=== PATIENT | female | born 1950 | race Caucasian/White ===

== ENCOUNTER 2023-07-14 07:08 | Emergency (ER) | payer MEDICARE, OTHER, SELFPAY ==
[2023-07-14 07:12] VITALS: BP 152/87
--- NOTE | 2023-07-14 08:10 | ED.GENMED ---
History of Present Illness
General
Chief Complaint: Abdominal Pain
Source: patient
Exam Limitations: none
Time Seen by Provider: 07/14/23 07:41
Nursing documentation reviewed up to this point in time: agreed with
Travel History
Have you had any contact with someone who has COVID-19?: No
Do you have any symptoms of coronavirus? Fever > 100 degrees, chills, cough, shortness of breath, sore throat, loss of taste or smell, muscle aches, or headache?: No
History of Present Illness
History of Present Illness:
72 Y/O F with h/o htn, hld, borderline dm
here with lower abd pain x 3 days
started after she ate at a restaurant, came home 3 days ago and had diarrhea, explosive, nonbloody. she then felt ok
but then has had pain in her lower abdomen, some pressure to urinate and just doesn't feelw ell. the pain is more crampy and comes and goes. nonradiating
no fever, chills, nausea, vomiting, diarrhea
still able to eat
had a colonoscopy 6 mo ago showin diverticulosis
never had itis
no dysuria, hematuria, urgency.
Past History
Past History
ED Past Medical History: HTN and Hypercholesterolemia
ED Past Surgical History: Orthopedic (spine)
Social History
Tobacco: Non-smoker
Alcohol: None
Drug: None
Personal: Single
Living: alone
Review of Systems
Review of Systems
Allergies reviewed?: Yes
All Other Systems: Not applicable
Phy Exam
Physical Exam
Physical Exam:
GENERAL: Alert , in no apparent distress
EYE: pupils equal and reactive
NECK: Supple
ENT: o/p clr, mmm.
CARDIAC: Regular rate and rhythm .
LUNGS: Clear breath sounds bilaterally, no acute respiratory distress, no wheezes/rales/rhonchi
ABDOMEN: Soft,verymild lower abd tenderness, no r/g, no cvat, normal bowel sounds
NEUROLOGICAL: Alert and oriented, no focal neuro deficits
SKIN: Warm and dry, skin intact.
MUSCULOSKELETAL: No edema, well perfused. neg elsa's sign
PSYCH: Normal and appropriate interaction.
Course
Orders/Labs/Results
Orders:
Orders
07/14/23 08:10
0.9% Sodium Chloride 1000 ml [Nss] 1,000 ml IV BOLUS
Iohexol [Omnipaque] See Protocol PO NOW STA
07/14/23 08:19
Complete Blood Count/With Diff Urgent
Comprehensive Metabolic Panel Urgent
Lactic Acid Urgent
07/14/23 08:40
CT Abd/Pel (IV only)-DH only Urgent
Comment:
Reason For Exam: lower abd pain, eval for divertic
07/14/23 09:57
Urinalysis Reflex To Culture Urgent
Date Specimen was Collected: 07/14/23
Time Specimen was Collected: 09:48
Urine Microscopic Reflex Cult Urgent
Urine Culture Urgent
CLARITA Source: U
Specimen Description:
Date Specimen was Collected: 07/14/23
Time Specimen was Collected: 09:48
07/14/23 10:57
LevoFLOXacin [Levaquin] 500 mg PO NOW STA
MetroNIDAZOLE [Flagyl] 500 mg PO NOW STA
Potassium Chloride Powder [Klor-Con] 20 meq PO NOW STA
Abnormal Lab Results
07/14/23 07/14/23
08:19 09:57
WBC 11.0 H 10^3/uL
(4.8-10.8)
MCH 31.2 H pg
(27.0-31.0)
Absolute Neuts (auto) 8.9 H 10^3/uL
(1.4-6.5)
Absolute Lymphs (auto) 1.1 L 10^3/uL
(1.2-3.4)
Absolute Monos (auto) 0.7 H 10^3/uL
(0.1-0.6)
Neutrophils % 81.0 H %
(42.2-75.2)
Lymphocytes % 10.2 L %
(20.5-51.1)
Potassium 3.3 L mmol/L
(3.5-5.1)
Glucose 127 H mg/dl
(70-99)
Leukocyte Esterase Rfl 1+ A
(Negative)
Urine Bacteria (Reflex) Few A
(Negative)
07/14/23 08:19
07/14/23 08:19
Vital Signs
Initial and Last Documented VS:
Initial Vital Signs
Temp Pulse Resp BP Pulse Ox
99.8 F 98 16 152/87 98
07/14/23 07:12 07/14/23 07:12 07/14/23 07:12 07/14/23 07:12 07/14/23 07:12
Last Documented Vital Signs
Temp Pulse Resp BP Pulse Ox
99.8 F 98 16 152/87 98
07/14/23 07:12 07/14/23 07:12 07/14/23 07:12 07/14/23 07:12 07/14/23 07:12
MDM/Problems Addressed
Differential Diagnosis Includes:
divertic, cytisis
MDM/Problems Addressed:
72 y/o F with lower abd pain and some loose stool, no fever, nauea, vomiting
traveling to [place] tomorrow so she is here to be checked
colonoscopy showed diverticulosis in the recent past, no h/o itits
borderline temp
nontoxic well appearing
minimal lower abd tenderness without guarding or rebound
wbc normal
ua tr leuk, micro not impressive
ct show suncomplicated diverticultiisi but also cholelithiasis and CBD dilation
pt having no vomiting, elevated lfts or ruq pain
recommend outpatient f/u for that
will treat with levofloxacin and flagyl
return precautions
*Critical Care Note
Total Time (30-74mins, 75-104mins- exclusive of procedures): Not Applicable
ED Attending Note
-
Portions of this chart may have been created with voice recognition software.� Occasional wrong word or��sound alike� substitutions may have occurred due to the inherent limitations of voice recognition software.
Discharge Plan
Departure
Patient Disposition: Home (Routine Discharge)
Date of Disposition: 07/14/23
Time of Disposition: 10:54
Patient with high blood pressure during this ER visit?: No
Condition: Fair
Discharge Problem:
Diverticulitis
Instructions: Diverticulitis (DC)
Prescriptions:
New
metronidazole 500 mg tablet
500 mg PO TID Qty: 21 0RF
levofloxacin 500 mg tablet
500 mg PO DAILY Qty: 6 0RF
Referrals:
Davi Howe PA-C [Family Provider] - Follow up in 2-3 days
Activity Restrictions/Additional Instructions:
You have findings on your CAT scan showing that you have uncomplicated sigmoid diverticulitis. For this I recommend clear liquids for the next 24 hours and advance your diet slowly as tolerated. Take the antibiotics as prescribed.
If you should have a fever, vomiting, severe pain, severe constipation or diarrhea, bloody stools you need to be evaluated immediately. Return for any concerns. Also incidentally you had some dilation of your common bile duct seen on CAT scan.
This is something that does need follow-up with your family doctor. They may want to order additional testing. But it can wait until after your trip.
YOUR POTASSIUM WAS A LITTLE LOW - EAT A BANANA OR AVOCADO TOMORROW
Interventions
Interventions:
*Risk Screen - Suicide Last Done: 07/14/23 07:12
*General Assessment Last Done: 07/14/23 07:12
*Neglect/Abuse Screening Last Done: 07/14/23 07:12
ED- Fall Risk Assessment Last Done: 07/14/23 07:48
*ED COVID-19 Vaccine History Last Done: 07/14/23 07:47
*Nursing Disposition Last Done: 07/14/23 11:18
QY-Ibbiwq-Gmmkfbulcr Assessment Last Done: 07/14/23 07:47
Discharge Date and Time
Discharge Date/Time: 07/14/23 11:19
Print Language: SERBIAN
[2023-07-14] MEDS: NSS 1000 IV (08:20)
[2023-07-14 08:23] VITALS: BMI 29.7
[2023-07-14 08:34] LABS: % Basophils 0.4 % (0-2); % Eosinophils 1.7 % (0-6); % Immature Granulocytes 0.4 % (0-0.5); % Lymphocytes 10.2 % (20.5-51.1); % Monocytes 6.3 % (1.7-9.3); Absolute Eosinophils 0.2 10^3/uL (0-0.7); Absolute Lymphocytes 1.1 10^3/uL (1.2-3.4); Absolute Monocytes 0.7 10^3/uL (0.1-0.6); Absolute Neutrophils 8.9 10^3/uL (1.4-6.5); Hematocrit 37.8 % (37.0-47.0); Hemoglobin 13.5 g/dL (12.0-16.0); Mean Corp Hgb Conc. 35.7 g/dL (33.0-37.0); Mean Corpuscular Hgb 31.2 pg (27.0-31.0); Mean Corpuscular Volume 87.3 fL (81.0-99.0); Mean Platelet Volume 9.5 fL (7.4-10.4); Nucleated Red Blood Cells % 0 %; Platelet Count 192 10^3/uL (130-400); Red Blood Cell Count 4.33 10^6/uL (4.20-5.40); Red Cell Dist. Width 12.2 % (11.5-14.5)
[2023-07-14 08:48] LABS: Lactic Acid 1.3 mmol/L (0.7-2.0); Potassium 3.3 mmol/L (3.5-5.1)
[2023-07-14 08:49] LABS: ALT (SGPT) 17 U/L (0-35); AST (SGOT) 18 U/L (14-36); Albumin 4.2 g/dl (3.5-5.0); Alkaline Phosphatase 89 U/L (38-126); Blood Urea Nitrogen 17 mg/dl (7-17); Calcium 9.4 mg/dl (8.4-10.2); Carbon Dioxide 30 mmol/L (22-30); Chloride 99 mmol/L (98-107); Estimated Creatinine Clearance 79 ml/min; Glucose 127 mg/dl (70-99); Sodium 138 mmol/L (135-145); Total Bilirubin 0.9 mg/dl (0.2-1.3); Total Protein 6.8 g/dl (6.3-8.2); eGFR > 60.00
[2023-07-14 10:23] LABS: Urine Albumin Trace (Neg - Trace); Urine Bilirubin Negative (Negative); Urine Character Clear (Clear); Urine Color Yellow; Urine Glucose Negative (Negative); Urine Ketone Negative (Negative); Urine Leukocyte 1+ (Negative); Urine Nitrite Negative (Negative); Urine Occult Blood Negative (Negative); Urine Urobilinogen Negative (Neg - 1+)
[2023-07-14] MEDS: KLOR-CON 20 MEQ PO (11:07)
[2023-07-14] MEDS: LEVAQUIN 500 MG PO (11:07)
[2023-07-14] MEDS: FLAGYL 500 MG PO (11:07)
[2023-07-14 11:13] LABS: Urine Bacteria Few (Negative); Urine Red Blood Cell 0-2 /HPF (0-2)
== END 2023-07-14 11:19 | disposition home or self-care (01) ==
LOC: EMR 07:08
PROVIDERS: Physician Assistant; EMERGENCY PHYSICIAN Emergency Medicine; FAMILY PHYSICIAN Physician Assistant Medical
DX: K57.32 Diverticulitis of large intestine without perforation or abscess without bleeding (principal); K80.20 Calculus of gallbladder without cholecystitis without obstruction; E78.00 Pure hypercholesterolemia, unspecified; I10 Essential (primary) hypertension; R73.03 Prediabetes
CPT/HCPCS: 99285; 96360; 74177; 80053; 81003; 81015; 83605; 85025; 87086; Q9967

== ENCOUNTER → 2023-08-20 07:41 | Outpatient (REF) | payer MEDICARE, OTHER, SELFPAY | LOC: MRI 07:41 | PROVIDERS: ATTENDING PHYSICIAN Physician Assistant Medical; REFERRING PHYSICIAN Internal Medicine Gastroenterology | DX: K83.8 Other specified diseases of biliary tract (principal) | CPT/HCPCS: 74183; A9575 ==

== ENCOUNTER → 2023-08-24 14:12 | Outpatient (REF) | payer MEDICARE, OTHER, SELFPAY | LOC: RAD 14:12 | PROVIDERS: ATTENDING PHYSICIAN Physician Assistant Medical; REFERRING PHYSICIAN Obstetrics & Gynecology Gynecology | DX: N94.89 Other specified conditions associated with female genital organs and menstrual cycle (principal) | CPT/HCPCS: 76856 ==

== ENCOUNTER → 2023-11-23 15:52 | Outpatient (REF) | payer MEDICARE, OTHER, SELFPAY | LOC: CLAB 15:52 | PROVIDERS: ATTENDING PHYSICIAN Obstetrics & Gynecology Gynecology | DX: R93.89 Abnormal findings on diagnostic imaging of other specified body structures (principal) | CPT/HCPCS: 88305 ==

== ENCOUNTER → 2024-03-27 15:45 | Outpatient (REF) | payer MEDICARE, OTHER, SELFPAY | LOC: HWRAD 15:45 | PROVIDERS: ATTENDING PHYSICIAN Podiatrist Foot & Ankle Surgery; FAMILY PHYSICIAN Physician Assistant Medical | DX: M79.671 Pain in right foot (principal) | CPT/HCPCS: 73630 ==

== ENCOUNTER → 2024-05-09 07:32 | Outpatient (REF) | payer MEDICARE, OTHER, SELFPAY | LOC: PAVMRI 07:32 | PROVIDERS: ATTENDING PHYSICIAN Physician Assistant; FAMILY PHYSICIAN Physician Assistant Medical; REFERRING PHYSICIAN Internal Medicine Gastroenterology | DX: K86.2 Cyst of pancreas (principal) | CPT/HCPCS: 74183; A9575 ==

== ENCOUNTER → 2024-09-24 12:07 | Outpatient (REF) | payer MEDICARE, OTHER, SELFPAY | LOC: HWRAD 12:07 | PROVIDERS: ATTENDING PHYSICIAN Physician Assistant Medical | DX: M54.50 Low back pain, unspecified (principal) | CPT/HCPCS: 72072; 72110 ==

== ENCOUNTER 2025-01-01 11:56 | Emergency (ER) | payer MEDICARE, OTHER, SELFPAY ==
[2025-01-01 11:57] VITALS: BP 142/79
[2025-01-01 13:31] LABS: Hematocrit 38.9 % (37.0-47.0); Hemoglobin 13.6 g/dL (12.0-16.0); Mean Corp Hgb Conc. 35.0 g/dL (33.0-37.0); Mean Corpuscular Volume 88.6 fL (81.0-99.0); Nucleated Red Blood Cells % 0 %; Platelet Count 191 10^3/uL (130-400); Red Cell Dist. Width 11.7 % (11.5-14.5)
[2025-01-01 13:48] LABS: ALT (SGPT) 21 U/L (0-35); AST (SGOT) 24 U/L (14-36); Albumin 4.3 g/dl (3.5-5.0); Alkaline Phosphatase 92 U/L (38-126); Blood Urea Nitrogen 9 mg/dl (7-17); Calcium 9.3 mg/dl (8.4-10.2); Carbon Dioxide 29 mmol/L (22-30); Chloride 94 mmol/L (98-107); Glucose 98 mg/dl (70-99); Potassium 3.3 mmol/L (3.5-5.1); Sodium 130 mmol/L (135-145); Total Protein 6.8 g/dl (6.3-8.2); eGFR > 60.00
--- NOTE | 2025-01-01 14:00 | ED.GENMED ---
History of Present Illness
General
Chief Complaint: Abdominal Symptoms
Time Seen by Provider: 01/01/25 12:22
History of Present Illness
History of Present Illness:
74-year-old female presents the emergency department for evaluation of left lower quadrant pain. Was prescribed antibiotics for diverticulitis by her primary care physician 2 days ago and has taken 3 doses thus far without improvement. Patient
denies any fevers or chills but does report nausea related to the antibiotics. Pain is mild to moderate at this time.
Past History
Past History
ED Past Medical History: HTN and Hypercholesterolemia
ED Past Surgical History: Orthopedic (spine)
Social History
Tobacco: Non-smoker
Alcohol: None
Drug: None
Personal: Single
Living: alone
Review of Systems
Review of Systems
Allergies reviewed?: Yes
All Other Systems: ROS reviewed and negative except as documented in HPI and ROS
Phy Exam
Physical Exam
Physical Exam:
GEN: Well appearing, NAD, WDWN
HEENT: Oral mucosa moist, no scleral icterus
Cardiac: Regular rate
Lung: No respiratory distress, no tachypnea
Abdomen: Soft, mild left lower quadrant tenderness, no rigidity or peritonitis
MSK: No gross deformity or injuries
Skin: Good color, no pallor or jaundice, no rashes
Neuro: AO x3, moves all extremities freely
Psych: Calm, cooperative
Course
Orders/Labs/Results
Orders:
Orders
01/01/25 13:04
Complete Blood Count/With Diff Urgent
Comprehensive Metabolic Panel Urgent
Abnormal Lab Results
01/01/25
13:04
Absolute Neuts (auto) 6.7 H 10^3/uL
(1.4-6.5)
Absolute Lymphs (auto) 0.9 L 10^3/uL
(1.2-3.4)
Absolute Monos (auto) 0.7 H 10^3/uL
(0.1-0.6)
Neutrophils % 78.5 H %
(42.2-75.2)
Lymphocytes % 10.7 L %
(20.5-51.1)
Sodium 130 L mmol/L
(135-145)
Potassium 3.3 L mmol/L
(3.5-5.1)
Chloride 94 L mmol/L
(98-107)
Total Bilirubin 1.6 H mg/dl
(0.2-1.3)
01/01/25 13:04
01/01/25 13:04
Vital Signs
Initial and Last Documented VS:
Initial Vital Signs
Temp Pulse Resp BP Pulse Ox
98.8 F 85 16 142/79 98
01/01/25 11:57 01/01/25 11:57 01/01/25 11:57 01/01/25 11:57 01/01/25 11:57
Last Documented Vital Signs
Temp Pulse Resp BP Pulse Ox
98.8 F 85 16 142/79 98
01/01/25 11:57 01/01/25 11:57 01/01/25 11:57 01/01/25 11:57 01/01/25 14:32
MDM/Problems Addressed
MDM/Problems Addressed:
Labs reassuring, exam not concerning for secondary complication of diverticulitis. Will continue antibiotics given that it is far too early to determine failure of outpatient management. No indication for imaging
*Pulse Oximetry
SaO2: 98
Oxygen Mode of Delivery: Room air
Patient hypoxic: no
*Critical Care Note
Total Time (30-74mins, 75-104mins- exclusive of procedures): Not Applicable
ED Attending Note
-
Portions of this chart may have been created with voice recognition software.� Occasional wrong word or��sound alike� substitutions may have occurred due to the inherent limitations of voice recognition software.
Discharge Plan
Departure
Patient Disposition: Home (Routine Discharge)
Date of Disposition: 01/01/25
Time of Disposition: 14:31
Patient with high blood pressure during this ER visit?: No
Discharge Problem:
Diverticulitis
Instructions: Diverticulitis (DC)
Prescriptions:
No Action
metronidazole 500 mg tablet
500 mg PO TID Qty: 21 0RF
levofloxacin 500 mg tablet
500 mg PO DAILY Qty: 6 0RF
Referrals:
UNKNOWN - PT DOES,NOT KNOW [Family Provider]
Interventions
Interventions:
*Risk Screen - Suicide Last Done: 01/01/25 11:57
*General Assessment Last Done: 01/01/25 13:00
*Neglect/Abuse Screening Last Done: 01/01/25 11:57
*ED COVID-19 Vaccine History Last Done: 01/01/25 13:00
*ED Influenza Vaccine History Last Done: 01/01/25 13:00
*Nursing Disposition Last Done: 01/01/25 14:54
NT-Bkbmhp-Gjexvqqehn Assessment Last Done: 01/01/25 13:00
Discharge Date and Time
Discharge Date/Time: 01/01/25 14:54
Print Language: KAZAKH
== END 2025-01-01 14:54 | disposition home or self-care (01) ==
LOC: EMR 11:56
PROVIDERS: Physician Assistant; EMERGENCY PHYSICIAN Student in an Organized Health Care Education/Training Program
DX: K57.92 Diverticulitis of intestine, part unspecified, without perforation or abscess without bleeding (principal); I10 Essential (primary) hypertension; E78.00 Pure hypercholesterolemia, unspecified
CPT/HCPCS: 99283; 80053; 85025